=== PATIENT | female | born 1980 | race Caucasian/White ===

== ENCOUNTER 2016-05-27 10:37 | Emergency (ER) | payer OTHER, MEDICAID ==
[~2016-05-27] VITALS: Ht 157.5 cm; Wt 66.2 kg
[~2016-05-27 10:37] MED LIST: IBUPROFEN400 MG PO
[2016-05-27 13:04] VITALS: BP 126/70
== END 2016-05-27 13:04 | disposition home or self-care (01) ==
LOC: ED 10:37
DX: B34.9 Viral infection, unspecified (principal)
CPT/HCPCS: J1885

== ENCOUNTER 2017-03-09 15:37 | Emergency (ER) | payer MEDICAID ==
[2017-03-09 17:56] VITALS: BP 117/70
== END 2017-03-09 17:56 | disposition home or self-care (01) ==
LOC: ED 15:37
DX: B07.9 Viral wart, unspecified (principal)

== ENCOUNTER 2018-11-11 12:22 | Emergency (ER) | payer MEDICAID ==
[~2018-11-11] VITALS: Ht 154.9 cm; Wt 69.9 kg
[2018-11-11 12:31] VITALS: Ht 154.9 cm; Wt 69.9 kg
[2018-11-11 14:30] VITALS: BP 108/55
== END 2018-11-11 14:30 | disposition home or self-care (01) ==
LOC: ED 12:22
DX: M77.31 Calcaneal spur, right foot (principal)